=== PATIENT | male | born 1975 | race Caucasian/White ===

== ENCOUNTER 2025-07-25 04:31 | Emergency (ER) | payer OTHER ==
[~2025-07-25] VITALS: Ht 185.4 cm; Wt 83.2 kg
[2025-07-25] MEDS: HALOPERIDOL LACTATE 5 MG/ML VIAL IV STA (07:16)
[2025-07-25] MEDS: NS (Normal Saline) 0.9% 1,000 ML IV ONE (07:16)
[2025-07-25] MEDS: KETOROLAC 30 MG/ML 1 ML VIAL IV ONE (07:16)
[2025-07-25] MEDS: ONDANSETRON 4MG 2ML VIAL IV ONE (07:16)
[2025-07-25 07:24] LABS: BASO # 0.0 10^3/uL (0.0-0.2); BASO % 0.2 % (0.0-1.0); EOS # 0.0 10^3/uL (0.0-0.5); EOS % 0.1 % (0.0-3.0); LYMPH # 0.9 10^3/uL (1.5-5.0); LYMPH % 6.7 % (24.0-44.0); MONO # 0.4 10^3/uL (0.0-0.8); MONO % 3.4 % (2.0-8.0); NEUTROPHILS # 11.5 10^3/uL (1.5-8.5); NEUTROPHILS % 89.3 % (36.0-66.0); PLATELET COUNT, AUTOMATED 374 10^3/uL (150-450)
[2025-07-25] MEDS: LORazepam 1 MG TAB PO STA (07:50)
[2025-07-25 07:55] LABS: ALT/SGPT 18.0 U/L (7.0-40); AST/SGOT 19.0 U/L (<34); CALCIUM LEVEL 9.9 MG/DL (8.5-10.1); CARBON DIOXIDE LEVEL 23.0 MMOL/L (20-31); CHLORIDE LEVEL 106.0 MMOL/L (98-107); CREATININE FOR GFR 1.03 MG/DL (0.70-1.30); GLOMERULAR FILTRATION RATE 89.1 (>60); POTASSIUM SERUM 4.0 MMOL/L (3.5-5.1); SODIUM LEVEL 142.0 MMOL/L (136-145)
[2025-07-25] MEDS ORDERED: REGL10TA6 PO (09:23)
[2025-07-25] MEDS ORDERED: ONDA-282 PO (09:23)
[2025-07-25 09:36] VITALS: BP 159/97; TEMP 98.6; O2SAT 100
== END 2025-07-25 09:37 | disposition home or self-care (01) ==
LOC: M ED 04:31
DX: F12.188 Cannabis abuse with other cannabis-induced disorder (principal); R11.2 Nausea with vomiting, unspecified; R19.7 Diarrhea, unspecified; F41.9 Anxiety disorder, unspecified; F32.A Depression, unspecified; Z79.899 Other long term (current) drug therapy
CPT/HCPCS: 80048; 80076; 83605; 83690; 85025; 96361; 96374; 96375; 99284; J1630; J1885; J2060; J2405; J2765

== ENCOUNTER 2025-09-18 16:49 | Emergency (ER) | payer OTHER ==
[~2025-09-18] VITALS: Ht 182.9 cm; Wt 85.6 kg
[~2025-09-18 16:49] MED LIST: ONDA-282 PO; REGL10TA6 PO
[2025-09-18 17:48] LABS: PLATELET COUNT, AUTOMATED 445 10^3/uL (150-450)
[2025-09-18 18:21] LABS: ALT/SGPT 19 U/L (7.0-40); AST/SGOT 19 U/L (<34); CALCIUM LEVEL 10.2 MG/DL (8.5-10.1); CARBON DIOXIDE LEVEL 23 MMOL/L (20-31); CHLORIDE LEVEL 105 MMOL/L (98-107); CK-MB VALUE MASS < 1.0 NG/ML (<3.6); CREATININE FOR GFR 0.84 MG/DL (0.70-1.30); GLOMERULAR FILTRATION RATE > 90.0 (>60); POTASSIUM SERUM 4.2 MMOL/L (3.5-5.1); SODIUM LEVEL 140 MMOL/L (136-145)
[2025-09-18 18:26] LABS: CPK CREATINE PHOSPHOKINASE 62 U/L (46-171)
[2025-09-18 19:41] LABS: KETONE, URINE AUTO RFX 1+ mg/dL (NEGATIVE); LEUKOCYTE ESTERASE UR AUTO RFX NEGATIVE (NEGATIVE); MUCUS, URINE RFX SMALL (NEGATIVE); NITRITE, URINE AUTO RFX NEGATIVE (NEGATIVE); RBC, URINE AUTO RFX 0 /HPF (0-3); SQUAM EPITHELIAL CELL UR AURFX 0 /HPF (0-6); WBC, URINE AUTO RFX 1 /HPF (0-3)
[2025-09-18 20:02] LABS: AMPHETAMINES LEVEL URINE NEGATIVE (NEGATIVE); BARBITURATES URINE NEGATIVE (NEGATIVE); BENZODIAZEPINES URINE NEGATIVE (NEGATIVE); COCAINE METABOLITE URINE NEGATIVE (NEGATIVE); METHADONE URINE NEGATIVE (NEGATIVE); OPIATES URINE NEGATIVE (NEGATIVE); PHENCYCLIDINE URINE NEGATIVE (NEGATIVE)
[2025-09-18 20:03] LABS: CANNABINOIDS URINE POSITIVE (NEGATIVE)
[2025-09-18] MEDS: ALPRAZolam 0.5 MG TAB PO ONE (20:29)
[2025-09-18] MEDS: ONDANSETRON 4MG ORAL DISINTEGRATING TAB PO ONE (20:40)
[2025-09-18] MEDS ORDERED: ISOVUE-370 76% 100 ML VIAL As Ordered ONE (21:16)
[2025-09-18] MEDS: NS (Normal Saline) 0.9% 1,000 ML IV ONE (21:40)
[2025-09-18] MEDS: diphenhydrAMINE 50 MG/ML VIAL IV STA (23:56)
[2025-09-19] MEDS ORDERED: PRED10TA2 PO (00:50)
[2025-09-19 00:56] VITALS: BP 135/74; O2SAT 100
[2025-09-19 00:59] VITALS: TEMP 98.2
[2025-09-20] MEDS ORDERED: MIRT-10 PO (18:20)
[2025-09-20] MEDS ORDERED: VENL37.598 (18:20)
[2025-09-20] MEDS ORDERED: CLON0.5T2 PO (23:12)
[2025-09-20] MEDS ORDERED: GABA-1635 PO (23:12)
[2025-09-20] MEDS ORDERED: BUSP15TA47 PO (23:12)
[2025-09-20] MEDS ORDERED: VENL150C43 PO (23:12)
[2025-09-20] MEDS ORDERED: ONDA-282 PO (23:12)
[2025-09-20] MEDS ORDERED: VENL75CA2 PO (23:12)
[2025-09-20] MEDS ORDERED: TRAZ-257 PO (23:12)
[2025-09-20] MEDS ORDERED: TRAZ-252 PO (23:12)
[2025-09-20] MEDS ORDERED: METO10TA2 PO (23:12)
[2025-09-20] MEDS ORDERED: CLON1TAB8 PO (23:12)
== END 2025-09-19 01:16 | disposition home or self-care (01) ==
LOC: M ED 16:49
DX: K52.9 Noninfective gastroenteritis and colitis, unspecified (principal); R94.31 Abnormal electrocardiogram [ECG] [EKG]; F41.9 Anxiety disorder, unspecified; F32.A Depression, unspecified; F17.210 Nicotine dependence, cigarettes, uncomplicated; Z79.52 Long term (current) use of systemic steroids; Z79.899 Other long term (current) drug therapy
CPT/HCPCS: 71046; 74177; 80048; 80076; 80307; 81001; 82550; 82553; 84484; 85027; 93005; 96361; 96374; 96375; 99285; J1200; J2060; J2765; Q9967

== ENCOUNTER 2025-09-20 18:12 | Emergency (ER) | payer OTHER ==
[~2025-09-20] VITALS: Ht 182.9 cm; Wt 82.6 kg
[~2025-09-20 18:12] MED LIST changes: +PRED10TA2 PO
[2025-09-20] MEDS ORDERED: MIRT-10 PO (18:20)
[2025-09-20] MEDS ORDERED: VENL37.598 (18:20)
[2025-09-20 19:37] LABS: BASO # 0.0 10^3/uL (0.0-0.2); BASO % 0.2 % (0.0-1.0); EOS # 0.0 10^3/uL (0.0-0.5); EOS % 0.3 % (0.0-3.0); LYMPH # 1.9 10^3/uL (1.5-5.0); LYMPH % 16.4 % (24.0-44.0); MONO # 1.0 10^3/uL (0.0-0.8); MONO % 8.5 % (2.0-8.0); NEUTROPHILS # 8.5 10^3/uL (1.5-8.5); NEUTROPHILS % 74.3 % (36.0-66.0); PLATELET COUNT, AUTOMATED 448 10^3/uL (150-450)
[2025-09-20] MEDS: HALOPERIDOL LACTATE 5 MG/ML VIAL IV ONE (20:02)
[2025-09-20 20:03] LABS: CK-MB VALUE MASS < 1.0 NG/ML (<3.6)
[2025-09-20] MEDS: KETOROLAC 30 MG/ML 1 ML VIAL IV ONE (20:03)
[2025-09-20 20:04] LABS: ALT/SGPT 15 U/L (7.0-40); AST/SGOT 18 U/L (<34)
[2025-09-20] MEDS: NS (Normal Saline) 0.9% 1,000 ML IV ONE (20:04)
[2025-09-20 20:08] LABS: CPK CREATINE PHOSPHOKINASE 140 U/L (46-171)
[2025-09-20] MEDS ORDERED: CLON0.5T2 PO (23:12)
[2025-09-20] MEDS ORDERED: GABA-1635 PO (23:12)
[2025-09-20] MEDS ORDERED: VENL75CA2 PO (23:12)
[2025-09-20] MEDS ORDERED: TRAZ-252 PO (23:12)
[2025-09-20] MEDS ORDERED: TRAZ-257 PO (23:12)
[2025-09-20] MEDS ORDERED: VENL150C43 PO (23:12)
[2025-09-20] MEDS ORDERED: METO10TA2 PO (23:12)
[2025-09-20] MEDS ORDERED: CLON1TAB8 PO (23:12)
[2025-09-20] MEDS ORDERED: ONDA-282 PO (23:12)
[2025-09-20] MEDS ORDERED: BUSP15TA47 PO (23:12)
[2025-09-20] MEDS ORDERED: HOME MED LIST COMPLETE! XX SCH (23:15)
[2025-09-21 00:45] VITALS: BP 108/69; TEMP 98.5; O2SAT 97
[2025-09-21] MEDS ORDERED: PROM25TA12 PO (01:01)
== END 2025-09-21 01:23 | disposition home or self-care (01) ==
LOC: M ED 18:12
DX: R10.9 Unspecified abdominal pain (principal); R11.10 Vomiting, unspecified; F41.9 Anxiety disorder, unspecified; F32.A Depression, unspecified; F12.10 Cannabis abuse, uncomplicated; Z79.899 Other long term (current) drug therapy; Z79.52 Long term (current) use of systemic steroids
CPT/HCPCS: 80047; 80076; 82550; 82553; 83690; 84484; 85025; 93005; 93041; 96361; 96374; 96375; 99285; J1630; J1885; J2550